=== PATIENT | male | born 1965 | race Caucasian/White ===

== ENCOUNTER 2019-12-28 18:17 | Outpatient (CLI) | payer BC | END 2019-12-28 18:18 | disposition home or self-care (01) | LOC: COV 18:17 | PROVIDERS: ATTEND Family Medicine | DX: Z53.9 Procedure and treatment not carried out, unspecified reason (principal) ==

== ENCOUNTER 2020-01-01 19:05 | Outpatient (CLI) | payer BC | END 2020-01-01 19:06 | disposition home or self-care (01) | LOC: COV 19:05 | PROVIDERS: ATTEND Family Medicine | DX: R05 Cough (principal) | CPT/HCPCS: 81599 ==